=== PATIENT | female | born 1965 | race African-American/Black ===

== ENCOUNTER 2017-08-19 21:18 | Emergency (ER) | payer MEDICAID ==
[~2017-08-19] VITALS: Ht 149.9 cm; Wt 41.0 kg
[2017-08-20] MEDS ORDERED: ACETAMINOPHEN 325MG TABLET PO ONE (05:15)
[2017-08-20 06:25] VITALS: BP 102/68
== END 2017-08-20 06:25 | disposition home or self-care (01) ==
LOC: ER 21:18
DX: F10.229 Alcohol dependence with intoxication, unspecified (principal); I10 Essential (primary) hypertension; K58.9 Irritable bowel syndrome, unspecified; Z98.890 Other specified postprocedural states; Y90.9 Presence of alcohol in blood, level not specified
CPT/HCPCS: 36415; 99283; G0482

== ENCOUNTER 2019-07-18 02:20 | Emergency (ER) | payer MEDICAID ==
[~2019-07-18] VITALS: Ht 160 cm; Wt 59.0 kg
[2019-07-18 04:12] LABS: CHLORIDE 107 mEq/L (98-107)
[2019-07-18 04:36] LABS: EOSINOPHILS % 1.8 % (0.0-5.0); ETHANOL BLOOD 385 mg/dL; HEMOGLOBIN. 13.4 g/dL (12.0-16.0); MEAN CORPUSCULAR HEMOGLOBIN 35.9 pg (28.0-32.0); MEAN CORPUSCULAR VOLUME 104.2 fL (81.0-99.0); MEAN PLATELET VOLUME 8.2 fl (7.4-10.4); MONOCYTES % 4.8 % (2.0-8.0); NEUTROPHILS % 38.4 % (40.0-76.0); PLATELET 220 x1000/uL (130-400); RED BLOOD CELL COUNT 3.74 mill/uL (4.2-5.4); RED CELL DISTRIBUTION WIDTH 14.4 % (11.6-14.6)
[2019-07-18 06:23] VITALS: BP 114/66
== END 2019-07-18 07:25 | disposition home or self-care (01) ==
LOC: ER 02:20
DX: M79.642 Pain in left hand (principal); F10.229 Alcohol dependence with intoxication, unspecified; I10 Essential (primary) hypertension; F17.210 Nicotine dependence, cigarettes, uncomplicated; Y90.8 Blood alcohol level of 240 mg/100 ml or more; Z98.890 Other specified postprocedural states
CPT/HCPCS: 36415; 73130; 80053; 80307; 80320; 80329; 85025; 99284; G0480

== ENCOUNTER 2021-04-19 11:55 | Emergency (ER) | payer MEDICAID, OTHER ==
[~2021-04-19] VITALS: Ht 170.2 cm; Wt 80.0 kg
[2021-04-19] MEDS ORDERED: ONDANSETRON HCL 4MG/2ML INJ IV STA (12:26)
[2021-04-19] MEDS ORDERED: FAMOTIDINE 20MG/2ML VIAL IV ONE (12:30)
[2021-04-19] MEDS ORDERED: SODIUM CHLORIDE 0.9% 1,000 ML IV ONE (12:30)
[2021-04-19 13:46] LABS: BASOPHILS % 0.8 % (0.0-2.0); EOSINOPHILS % 0.5 % (0.0-5.0); HEMATOCRIT. 34.9 % (36.0-48.0); HEMOGLOBIN. 11.6 g/dL (12.0-16.0); LYMPHOCYTES % 65.9 % (20.0-50.0); MEAN CORPUSCULAR HEMOGLOBIN 31.9 pg (28.0-32.0); MEAN CORPUSCULAR VOLUME 95.8 fL (81.0-99.0); MONOCYTES % 6.1 % (2.0-8.0); NEUTROPHILS % 26.7 % (40.0-76.0); PLATELET 318 x1000/uL (130-400); RED BLOOD CELL COUNT 3.64 mill/uL (4.2-5.4); RED CELL DISTRIBUTION WIDTH 16.3 % (11.6-14.6)
[2021-04-19 13:51] LABS: CHLORIDE 104 mEq/L (98-107)
[2021-04-19] MEDS ORDERED: LORAZEPAM 2MG/ML CPJ IM ONE (14:30)
[2021-04-19 14:37] LABS: ETHANOL BLOOD 341 mg/dL
[2021-04-19 16:52] LABS: CLARITY URINE CLEAR (CLEAR); COLOR URINE YELLOW (YELLOW); KETONES URINE NEGATIVE (NEGATIVE); LEUKOCYTE ESTERASE URINE 1+ (NEGATIVE); NITRITE URINE NEGATIVE (NEGATIVE); OCCULT BLOOD URINE NEGATIVE (NEGATIVE); PH URINE 6.5 (4.5-8.0); PROTEIN URINE 1+ (NEGATIVE); SPECIFIC GRAVITY URINE 1.009 (1.005-1.030); UROBILINOGEN URINE 0.2 E.U./dL (0.2-1.0)
[2021-04-19 17:08] LABS: *BARBITURATES SCREEN URINE NEGATIVE (NEGATIVE); *BENZODIAZEPINES SCREEN URINE NEGATIVE (NEGATIVE)
[2021-04-19 17:09] LABS: *AMPHETAMINES SCREEN URINE NEGATIVE (NEGATIVE); *COCAINE SCREEN URINE NEGATIVE (NEGATIVE); CANNABINOID URINE SCREEN NEGATIVE (NEGATIVE); OPIATES URINE SCREEN NEGATIVE (NEGATIVE); PHENCYCLIDINE URINE SCREEN NEGATIVE (NEGATIVE)
[2021-04-19 17:11] LABS: METHADONE URINE SCREEN NEGATIVE (NEGATIVE)
[2021-04-19] MEDS ORDERED: OMEP20CA14 MT (17:54)
[2021-04-19 17:59] VITALS: BP 101/73
== END 2021-04-19 18:31 | disposition home or self-care (01) ==
LOC: ER 11:55
DX: R10.9 Unspecified abdominal pain (principal); F10.129 Alcohol abuse with intoxication, unspecified; Y90.8 Blood alcohol level of 240 mg/100 ml or more; I10 Essential (primary) hypertension; K76.9 Liver disease, unspecified
CPT/HCPCS: 36415; 74176; 80053; 80305; 80320; 81003; 83690; 85025; 99291; J2060; J7030; G0480

== ENCOUNTER 2021-06-18 19:04 | Inpatient (IN) | payer MEDICAID, OTHER ==
[~2021-06-18] VITALS: Ht 160 cm; Wt 43.1 kg
[~2021-06-18 19:04] MED LIST: OMEP20CA14 MT
[2021-06-18 21:33] LABS: BASOPHILS % 1.2 % (0.0-2.0); EOSINOPHILS % 0.4 % (0.0-5.0); HEMATOCRIT. 30.9 % (36.0-48.0); HEMOGLOBIN. 10.2 g/dL (12.0-16.0); LYMPHOCYTES % 46.1 % (20.0-50.0); MEAN CORPUSCULAR HEMOGLOBIN 28.6 pg (28.0-32.0); MEAN CORPUSCULAR VOLUME 86.7 fL (81.0-99.0); MEAN PLATELET VOLUME 7.7 fl (7.4-10.4); MONOCYTES % 6.4 % (2.0-8.0); NEUTROPHILS % 45.9 % (40.0-76.0); PLATELET 329 x1000/uL (130-400); RED BLOOD CELL COUNT 3.57 mill/uL (4.2-5.4); RED CELL DISTRIBUTION WIDTH 17.3 % (11.6-14.6)
[2021-06-18 21:41] LABS: CHLORIDE 105 mEq/L (98-107)
[2021-06-18 21:46] LABS: ETHANOL BLOOD 236 mg/dL
[2021-06-18 21:48] LABS: PHOSPHORUS 3.2 mg/dL (2.5-4.9)
[2021-06-18] MEDS ORDERED: SODIUM CHLORIDE 0.9% 1,000 ML IV ONE (22:30)
[2021-06-18] MEDS ORDERED: MORPHINE SULFATE 2 MG/ML CPJ (NOT FOR IM USE) IV NR (22:30)
[2021-06-18] MEDS ORDERED: POTASSIUM CHLORIDE 20MEQ TABLET SR PO ONE (23:30)
[2021-06-19] VITALS (7 sets, daily range): BP systolic 136–152; BP diastolic 70–91
[2021-06-19] MEDS ORDERED: IOHEXOL-300 100 ML BOTTLE ONE (00:33)
[2021-06-19] MEDS: HYDROCODONE/ACETAMINOPHEN 5/325MG TABLET PO PRN ×3 (06:29→22:10)
[2021-06-19] MEDS ORDERED: CLONIDINE 0.1MG TABLET PO PRN (13:45)
[2021-06-19] MEDS ORDERED: ONDANSETRON HCL 4MG/2ML INJ IV PRN (13:45)
[2021-06-19] MEDS ORDERED: MAGNESIUM/ALUMINUM HYDROXIDE/SIMETHICONE 30ML UDC PO PRN (13:45)
[2021-06-19] MEDS ORDERED: NALOXONE HCL 0.4MG/ML VIAL IV PRN (14:15)
[2021-06-19] MEDS: DEXT 5%/0.45% NACL KCL 10MEQ/L 1,000 ML IV SCH (14:56)
[2021-06-19] MEDS: MULTIVITAMINS,THER W-MINERALS TABLET PO SCH (14:57)
[2021-06-19] MEDS: FOLIC ACID 1MG TABLET PO SCH (14:57)
[2021-06-19] MEDS: PANTOPRAZOLE SODIUM 40 MG/VIAL IV SCH (14:57)
[2021-06-19] MEDS: ENOXAPARIN 40MG/0.4ML SYR SUBCUT SCH (14:58)
[2021-06-19] MEDS: THIAMINE HCL 100MG TABLET PO SCH (15:02)
[2021-06-19] MEDS: CHLORDIAZEPOXIDE 25MG CAPSULE PO SCH ×2 (15:02→22:09)
[2021-06-19 17:55] LABS: HEPATITIS B SURFACE ANTIGEN NEGATIVE
[2021-06-19] MEDS: MORPHINE SULFATE 2 MG/ML CPJ (NOT FOR IM USE) IV PRN (20:24)
[2021-06-20] VITALS (8 sets, daily range): BP systolic 124–147; BP diastolic 72–93
[2021-06-20] MEDS: DEXT 5%/0.45% NACL KCL 10MEQ/L 1,000 ML IV SCH ×2 (02:22→10:52)
[2021-06-20] MEDS: CHLORDIAZEPOXIDE 25MG CAPSULE PO SCH (05:18)
[2021-06-20 06:05] LABS: BASOPHILS % 0.9 % (0.0-2.0); EOSINOPHILS % 1.7 % (0.0-5.0); HEMATOCRIT. 25.7 % (36.0-48.0); HEMOGLOBIN. 8.5 g/dL (12.0-16.0); LYMPHOCYTES % 40.4 % (20.0-50.0); MEAN CORPUSCULAR HEMOGLOBIN 29.1 pg (28.0-32.0); MEAN CORPUSCULAR VOLUME 88.3 fL (81.0-99.0); MEAN PLATELET VOLUME 8.3 fl (7.4-10.4); MONOCYTES % 11.1 % (2.0-8.0); NEUTROPHILS % 45.9 % (40.0-76.0); PLATELET 260 x1000/uL (130-400); RED CELL DISTRIBUTION WIDTH 16.9 % (11.6-14.6)
[2021-06-20 06:49] LABS: CHLORIDE 103 mEq/L (98-107)
[2021-06-20 07:05] LABS: AMYLASE 62 IU/L (25-115)
[2021-06-20 07:09] LABS: PHOSPHORUS 3.2 mg/dL (2.5-4.9)
[2021-06-20] MEDS ORDERED: PNEUMOCOCCAL 23-VAL P-SAC VAC 0.5 ML IM ONE (09:00)
[2021-06-20] MEDS: THIAMINE HCL 100MG TABLET PO SCH (09:38)
[2021-06-20] MEDS: MULTIVITAMINS,THER W-MINERALS TABLET PO SCH (09:38)
[2021-06-20] MEDS: FOLIC ACID 1MG TABLET PO SCH (09:39)
[2021-06-20] MEDS: PANTOPRAZOLE SODIUM 40 MG/VIAL IV SCH (09:39)
[2021-06-20] MEDS: MORPHINE SULFATE 2 MG/ML CPJ (NOT FOR IM USE) IV PRN (10:23)
[2021-06-20] MEDS ORDERED: THIA100T72 PO (11:27)
[2021-06-20] MEDS ORDERED: FOLI-43 PO (11:27)
[2021-06-20] MEDS ORDERED: L25 PO (11:27)
[2021-06-20] MEDS ORDERED: MULT-1146 MT (11:27)
[2021-06-20] MEDS ORDERED: POTASSIUM CHLORIDE 20MEQ TABLET SR PO NR (11:30)
[2021-06-20] MEDS: ENOXAPARIN 40MG/0.4ML SYR SUBCUT SCH (13:26)
== END 2021-06-20 15:35 | disposition home or self-care (01) | DRG 282 ==
LOC: ER 19:04 → 5EST 06-19 01:55 → ENRESERV 06-19 08:34
PROVIDERS: ADMIT Internal Medicine; ATTEND Internal Medicine
DX: K85.20 Alcohol induced acute pancreatitis without necrosis or infection (principal); K74.60 Unspecified cirrhosis of liver; D18.03 Hemangioma of intra-abdominal structures; D25.9 Leiomyoma of uterus, unspecified; D64.9 Anemia, unspecified; E87.6 Hypokalemia; F17.210 Nicotine dependence, cigarettes, uncomplicated; K76.0 Fatty (change of) liver, not elsewhere classified; Y90.7 Blood alcohol level of 200-239 mg/100 ml; Z20.822 Contact with and (suspected) exposure to COVID-19; F10.129 Alcohol abuse with intoxication, unspecified; I10 Essential (primary) hypertension; Z82.49 Family history of ischemic heart disease and other diseases of the circulatory system; Z71.6 Tobacco abuse counseling
CPT/HCPCS: 36415; 71045; 74177; 76705; 80048; 80053; 80076; 80307; 80320; 80329; 82140; 82150; 83735; 84100; 84443; 85025; 86705; 86709; 86803; 87340; 87426; 90732; 99285; C9113; J1650; J2270; Q9967; G0480

== ENCOUNTER 2021-08-31 08:39 | Emergency (ER) | payer OTHER ==
[~2021-08-31] VITALS: Ht 149.9 cm; Wt 45.0 kg
[~2021-08-31 08:39] MED LIST changes: +FOLI-43 PO; +L25 PO; +MULT-1146 MT; +THIA100T72 PO
[2021-08-31] MEDS ORDERED: KETOROLAC 30MG/ML VIAL IV STA (08:49)
[2021-08-31] MEDS ORDERED: ONDANSETRON HCL 4MG/2ML INJ IV STA (08:49)
[2021-08-31 09:22] LABS: BASOPHILS % 1.6 % (0.0-2.0); EOSINOPHILS % 0.4 % (0.0-5.0); HEMATOCRIT. 32.1 % (36.0-48.0); HEMOGLOBIN. 10.8 g/dL (12.0-16.0); LYMPHOCYTES % 38.9 % (20.0-50.0); MEAN CORPUSCULAR HEMOGLOBIN 27.9 pg (28.0-32.0); MEAN CORPUSCULAR VOLUME 83.4 fL (81.0-99.0); MEAN PLATELET VOLUME 7.1 fl (7.4-10.4); MONOCYTES % 9.5 % (2.0-8.0); NEUTROPHILS % 49.6 % (40.0-76.0); PLATELET 371 x1000/uL (130-400); RED BLOOD CELL COUNT 3.85 mill/uL (4.2-5.4); RED CELL DISTRIBUTION WIDTH 19.2 % (11.6-14.6)
[2021-08-31 09:36] LABS: CHLORIDE 83 mEq/L (98-107)
[2021-08-31] MEDS ORDERED: POTASSIUM CHLORIDE 20MEQ TABLET SR PO ONE (10:45)
[2021-08-31] MEDS ORDERED: POTASSIUM CHLORIDE INJ 40 MEQ in DEXT 5% WATER 250 ML IV ONE (10:45)
[2021-08-31] MEDS ORDERED: MAGNESIUM 1 G PREMIX 100 ML IV ONE (12:30)
[2021-08-31] MEDS ORDERED: MAGNESIUM 1 G PREMIX 100 ML IV SCH (15:00)
[2021-08-31] MEDS ORDERED: ONDANSETRON HCL 4MG/2ML INJ IV ONE (19:30)
[2021-08-31] MEDS ORDERED: HYDROCODONE/ACETAMINOPHEN 5/325MG TABLET PO ONE (22:15)
[2021-09-01 00:44] VITALS: BP 114/79
== END 2021-09-01 00:55 | disposition short-term general hospital (02) ==
LOC: ER 08:39
DX: E83.42 Hypomagnesemia (principal); E87.6 Hypokalemia; I10 Essential (primary) hypertension; F10.229 Alcohol dependence with intoxication, unspecified; Y90.0 Blood alcohol level of less than 20 mg/100 ml
CPT/HCPCS: 36415; 80053; 83690; 83735; 85025; 93005; 96365; 96366; 96368; 96375; 96376; 99285; J1885; J2405; J3475; J3480; J7060

== ENCOUNTER 2022-06-18 11:13 | Emergency (ER) | payer MEDICAID, OTHER ==
[~2022-06-18] VITALS: Ht 160 cm; Wt 42.0 kg
[2022-06-18 12:02] LABS: BASOPHILS % 0.2 % (0.0-2.0); EOSINOPHILS % 0.7 % (0.0-5.0); HEMATOCRIT. 29.7 % (36.0-48.0); HEMOGLOBIN. 10.4 g/dL (12.0-16.0); LYMPHOCYTES % 17.6 % (20.0-50.0); MEAN CORPUSCULAR HEMOGLOBIN 33.5 pg (28.0-32.0); MEAN CORPUSCULAR VOLUME 95.8 fL (81.0-99.0); MEAN PLATELET VOLUME 8.4 fl (7.4-10.4); MONOCYTES % 9.2 % (2.0-8.0); NEUTROPHILS % 72.3 % (40.0-76.0); PLATELET 259 x1000/uL (130-400); RED CELL DISTRIBUTION WIDTH 14.8 % (11.6-14.6)
[2022-06-18 12:04] LABS: CHLORIDE 94 mEq/L (98-107)
[2022-06-18 12:14] LABS: ETHANOL BLOOD < 10 mg/dL
[2022-06-18 12:15] LABS: CLARITY URINE CLEAR (CLEAR); COLOR URINE YELLOW (YELLOW); KETONES URINE NEGATIVE (NEGATIVE); LEUKOCYTE ESTERASE URINE 3+ (NEGATIVE); NITRITE URINE NEGATIVE (NEGATIVE); OCCULT BLOOD URINE NEGATIVE (NEGATIVE); PROTEIN URINE NEGATIVE (NEGATIVE); SPECIFIC GRAVITY URINE 1.017 (1.005-1.030); UROBILINOGEN URINE 0.2 E.U./dL (0.2-1.0)
[2022-06-18] MEDS ORDERED: IOHEXOL-350 100 ML BOTTLE ONE (12:17)
[2022-06-18] MEDS ORDERED: KCL 20MEQ/100ML PREMIX 100 ML IV ONE (12:30)
[2022-06-18 12:40] LABS: *AMPHETAMINES SCREEN URINE NEGATIVE (NEGATIVE); *BARBITURATES SCREEN URINE NEGATIVE (NEGATIVE); *BENZODIAZEPINES SCREEN URINE NEGATIVE (NEGATIVE); *COCAINE SCREEN URINE NEGATIVE (NEGATIVE); CANNABINOID URINE SCREEN NEGATIVE (NEGATIVE); METHADONE URINE SCREEN NEGATIVE (NEGATIVE); OPIATES URINE SCREEN NEGATIVE (NEGATIVE); PHENCYCLIDINE URINE SCREEN NEGATIVE (NEGATIVE)
[2022-06-18] MEDS ORDERED: METO5TAB86 PO (12:54)
[2022-06-18] MEDS ORDERED: SPIR100T5 PO (12:55)
[2022-06-18] MEDS ORDERED: PROT40 PO (12:55)
[2022-06-18] MEDS ORDERED: AMLO5TAB88 PO (12:55)
[2022-06-18] MEDS ORDERED: PROP10TA10 PO (13:00)
[2022-06-18] MEDS ORDERED: SUCR1TAB PO (13:01)
[2022-06-18 14:34] VITALS: BP 145/100
== END 2022-06-18 14:48 | disposition short-term general hospital (02) ==
LOC: ER 11:13 → EDBEDREQSVC 14:40 → ER 14:48 → CANBEDREQ 06-19 02:46
DX: I63.511 Cerebral infarction due to unspecified occlusion or stenosis of right middle cerebral artery (principal); I10 Essential (primary) hypertension; K70.9 Alcoholic liver disease, unspecified; F17.210 Nicotine dependence, cigarettes, uncomplicated; W01.0XXA Fall on same level from slipping, tripping and stumbling without subsequent striking against object, initial encounter; Y93.89 Activity, other specified; Y92.018 Other place in single-family (private) house as the place of occurrence of the external cause
CPT/HCPCS: 36415; 70450; 70496; 70498; 71045; 80053; 80305; 80320; 81003; 84484; 85025; 87086; 87186; 93005; 96360; 99291; J3480; Q9967; Z7610; G0480

== ENCOUNTER 2022-10-05 19:59 | Emergency (ER) | payer OTHER ==
[~2022-10-05] VITALS: Ht 157.5 cm; Wt 49.0 kg
[~2022-10-05 19:59] MED LIST changes: +AMLO5TAB88 PO; +LEVO750T68 MT; +METO5TAB86 PO; -OMEP20CA14 MT; +PROP10TA10 PO; +PROT40 PO; +SPIR100T5 PO; +SUCR1TAB PO
[2022-10-05 20:08] VITALS: O2SAT 98
[2022-10-05] MEDS ORDERED: KETOROLAC 30MG/ML VIAL IV ONE (20:30)
[2022-10-05 20:36] LABS: BASOPHILS % 0.5 % (0.0-2.0); EOSINOPHILS % 1.8 % (0.0-5.0); HEMATOCRIT. 29.9 % (36.0-48.0); HEMOGLOBIN. 9.3 g/dL (12.0-16.0); LYMPHOCYTES % 22.6 % (20.0-50.0); MEAN CORPUSCULAR HEMOGLOBIN 27.4 pg (28.0-32.0); MEAN CORPUSCULAR VOLUME 87.9 fL (81.0-99.0); MONOCYTES % 7.1 % (2.0-8.0); PLATELET 450 x1000/uL (130-400); RED CELL DISTRIBUTION WIDTH 16.3 % (11.6-14.6)
[2022-10-05 20:55] LABS: CHLORIDE 107 mEq/L (98-107)
[2022-10-05] MEDS ORDERED: POLY17PO3 MT (21:25)
[2022-10-05] MEDS ORDERED: SODIUM CHLORIDE 0.9% 1,000 ML IV ONE (21:30)
[2022-10-05 23:30] VITALS: BP 121/72; PULSE 87; RESP 15; TEMP 98.5
== END 2022-10-05 23:31 | disposition home or self-care (01) ==
LOC: ER 19:59
DX: M79.10 Myalgia, unspecified site (principal); K59.00 Constipation, unspecified; E78.00 Pure hypercholesterolemia, unspecified; I10 Essential (primary) hypertension; F10.229 Alcohol dependence with intoxication, unspecified; Y90.0 Blood alcohol level of less than 20 mg/100 ml; Z86.73 Personal history of transient ischemic attack (TIA), and cerebral infarction without residual deficits
CPT/HCPCS: 99284; 96374; 96361; 80053; 83690; 85025; 84484; 36415; 74018; J1885

== ENCOUNTER 2022-11-07 12:55 | Emergency (ER) | payer OTHER ==
[~2022-11-07] VITALS: Ht 162.6 cm; Wt 45.0 kg
[~2022-11-07 12:55] MED LIST changes: +POLY17PO3 MT
[2022-11-07 13:00] VITALS: O2SAT 96
[2022-11-07 13:26] LABS: BASOPHILS % 0.7 % (0.0-2.0); HEMOGLOBIN. 8.5 g/dL (12.0-16.0); LYMPHOCYTES % 31.7 % (20.0-50.0); MEAN CORPUSCULAR HEMOGLOBIN 28.3 pg (28.0-32.0); MEAN CORPUSCULAR HGB CONC 34.1 g/dL (31.0-37.0); MEAN PLATELET VOLUME 8.2 fl (7.4-10.4); MONOCYTES % 5.9 % (2.0-8.0); NEUTROPHILS % 59.7 % (40.0-76.0); PLATELET 305 x1000/uL (130-400); RED BLOOD CELL COUNT 3.01 mill/uL (4.2-5.4); RED CELL DISTRIBUTION WIDTH 16.7 % (11.6-14.6); WHITE BLOOD COUNT 7.7 x1000/uL (4.5-11.0)
[2022-11-07 13:34] LABS: CHLORIDE 108 mEq/L (98-107); INDEX HEMOLYSI 1 (1-3); INDEX ICTERIC 1 (1-4); INDEX LIPEMIC 1 (1-3); POTASSIUM 3.7 mEq/L (3.5-5.1); SODIUM 141 mEq/L (136-145)
[2022-11-07 13:45] LABS: ALANINE AMINOTRANSFERASE 19 IU/L (13-61); ALBUMIN 3.1 g/dL (3.4-5.0); ASPARTATE AMINOTRANSFERASE 15 IU/L (15-37); BILIRUBIN TOTAL 0.3 mg/dL (0.1-1.0); CALCIUM 11.6 mg/dL (8.5-10.1); CARBON DIOXIDE 26 mEq/L (21-32); CREATININE 1.4 mg/dL (0.6-1.3); NT PRO B-TYPE NATRIURETIC PEP 300 pg/mL (5-125); PROTEIN TOTAL 7.3 g/dL (6.0-8.3); TROPONIN I HIGH SENSITIVITY 10 ng/L (<54); UREA NITROGEN BLOOD 26 mg/dL (7-21)
[2022-11-07] MEDS ORDERED: SODIUM CHLORIDE 0.9% 1,000 ML IV ONE (15:00)
[2022-11-07 15:35] LABS: GLUCOSE 114 mg/dL (70-105)
[2022-11-07 22:13] VITALS: BP 153/91; PULSE 77; RESP 12; TEMP 98.4
== END 2022-11-07 23:27 | disposition short-term general hospital (02) ==
LOC: ER 12:55 → CANBEDREQ 11-08 01:07
DX: R55 Syncope and collapse (principal); E78.00 Pure hypercholesterolemia, unspecified; I10 Essential (primary) hypertension; Z79.899 Other long term (current) drug therapy; W05.0XXA Fall from non-moving wheelchair, initial encounter; Y93.89 Activity, other specified; Y92.89 Other specified places as the place of occurrence of the external cause; Y99.8 Other external cause status
CPT/HCPCS: 36415; 71045; 80053; 82962; 83880; 84484; 85025; 93005; 96360; 99285

== ENCOUNTER 2023-10-07 14:52 | Emergency (ER) | payer MEDICARE, MEDICAID ==
[~2023-10-07] VITALS: Ht 162.6 cm; Wt 59.0 kg
[~2023-10-07 14:52] MED LIST changes: +AMIT25TA9 PO; -AMLO5TAB88 PO; +ASPI-1406 PO; +ATOR-2 PO; +CHLO25CA11 PO; -L25 PO; +LEVE500T19 PO; -LEVO750T68 MT; +PANT40TA51 PO
[2023-10-07 15:03] VITALS: TEMP 98.1; O2SAT 100
[2023-10-07 16:09] LABS: BASOPHILS % 0.6 % (0.0-2.0); EOSINOPHILS % 0.8 % (0.0-5.0); HEMATOCRIT. 34.4 % (36.0-48.0); HEMOGLOBIN. 11.8 g/dL (12.0-16.0); LYMPHOCYTES % 18.6 % (20.0-50.0); MEAN CORPUSCULAR HEMOGLOBIN 29.9 pg (28.0-32.0); MEAN CORPUSCULAR HGB CONC 34.1 g/dL (31.0-37.0); MEAN CORPUSCULAR VOLUME 87.5 fL (81.0-99.0); MEAN PLATELET VOLUME 7.7 fl (7.4-10.4); MONOCYTES % 4.9 % (2.0-8.0); NEUTROPHILS % 75.1 % (40.0-76.0); PLATELET 397 x1000/uL (130-400); RED BLOOD CELL COUNT 3.94 mill/uL (4.2-5.4); RED CELL DISTRIBUTION WIDTH 14.5 % (11.6-14.6); WHITE BLOOD COUNT 10.7 x1000/uL (4.5-11.0)
[2023-10-07] MEDS: LEVETIRACETAM 500MG PREMIX 100 ML IV ONE (16:09)
[2023-10-07] MEDS: SODIUM CHLORIDE 0.9% 1,000 ML IV ONE (16:09)
[2023-10-07 16:19] LABS: CHLORIDE 103 mEq/L (98-107); POTASSIUM 4.7 mEq/L (3.5-5.1); SODIUM 134 mEq/L (136-145)
[2023-10-07 16:20] LABS: CALCIUM 10.1 mg/dL (8.7-10.4); CARBON DIOXIDE 25 mEq/L (21-32)
[2023-10-07 16:25] LABS: CREATININE 1.3 mg/dL (0.6-1.0); GLUCOSE 100 mg/dL (70-105); UREA NITROGEN BLOOD 31 mg/dL (9-23)
[2023-10-07 16:26] LABS: TROPONIN I HIGH SENSITIVITY 6 ng/L (3.0-34)
[2023-10-07 19:12] VITALS: BP 97/69; PULSE 78; RESP 16
== END 2023-10-07 19:24 | disposition left against medical advice (07) ==
LOC: ER 14:52
DX: R53.1 Weakness (principal); D64.9 Anemia, unspecified; N17.9 Acute kidney failure, unspecified; I10 Essential (primary) hypertension; Z86.73 Personal history of transient ischemic attack (TIA), and cerebral infarction without residual deficits; Z79.899 Other long term (current) drug therapy
CPT/HCPCS: 99285; 96365; 70450; 71045; 80048; 85025; 84484; 36415; 93005; J1953; J7030